=== PATIENT | female | born 2000 | race Caucasian/White ===

== ENCOUNTER 2024-12-21 22:08 | Emergency (ER) | payer SELFPAY ==
[~2024-12-21] VITALS: Ht 160 cm; Wt 50.0 kg
[2024-12-21 22:10] VITALS: BP 122/73; PULSE 100; RESP 12; O2SAT 98
== END 2024-12-21 23:39 | disposition home or self-care (01) ==
LOC: ER 22:08
DX: T51.0X1A Toxic effect of ethanol, accidental (unintentional), initial encounter (principal); F10.129 Alcohol abuse with intoxication, unspecified; Y90.9 Presence of alcohol in blood, level not specified
CPT/HCPCS: 99283